=== PATIENT | female | born 1970 | race Two or more races ===

== ENCOUNTER 2021-06-20 15:00 | Outpatient (RCR) | payer OTHER, SELFPAY | END 2021-06-20 18:38 | disposition home or self-care (01) | LOC: HO.PTCHIC 15:00 | PROVIDERS: PCP Nurse Practitioner; Visit Provider Nurse Practitioner | DX: M54.30 Sciatica, unspecified side (principal) | CPT/HCPCS: 97110; 97140; 97161 ==

== ENCOUNTER 2023-10-23 07:27 | Day surgery (SDC) | payer OTHER, SELFPAY ==
[2023-10-21 11:17] VITALS: BMI 28.5
--- NOTE | 2023-10-22 09:48 | HO.ANESPROP2 ---
Documented by User: Lien Bernabe NP 10/22/23 09:49 HPI - Anesthesia Eval Consult details Narrative: 53yo F for Colonoscopy [facility] Past Medical History Medical History (Updated 10/23/23 @ 07:41 by Luz Sanchez RN) In vitro fertilization History of DVT (deep vein thrombosis) Seasonal allergies Social History Social History Patient Tobacco Use Status: Never used Tobacco Use of substances other than those prescribed or required for medical reasons: No Are you DNR?: No Advance Directives: No Advance Directives Information Provided: Yes Meds Allergies Allergy/AdvReac Type Severity Reaction Status Date / Time cephalexin Allergy Unknown rash Verified 01/08/17 00:00 [email or web address] Allergy Rash Verified 10/21/23 11:17 Home Medications Medication Instructions Recorded Confirmed Last Taken Type cetirizine 10 mg capsule (Zyrtec) 10 mg PO DAILY 10/21/23 10/21/23 Unknown History multivitamin 1 tab PO DAILY 10/21/23 10/21/23 Unknown History Exam Height,Weight and Vital Signs: Height 5 ft 2 in Weight 70.76 kg Assessment and Plan Assessment Anesthesia Assessment: Chart Reviewed Documented by User: Sahil Saini MD 10/23/23 09:11 [facility] Past Medical History Medical History (Updated 10/23/23 @ 07:41 by Luz Sanchez RN) In vitro fertilization History of DVT (deep vein thrombosis) Seasonal allergies Family History Family history of problems with anesthesia: No Surgical History History of Problems with Anesthesia: No Social History Social History Patient Tobacco Use Status: Never used Tobacco Use of substances other than those prescribed or required for medical reasons: No Are you DNR?: No Advance Directives: No Advance Directives Information Provided: Yes Meds Allergies Allergy/AdvReac Type Severity Reaction Status Date / Time cephalexin Allergy Unknown rash Verified 01/08/17 00:00 [email or web address] Allergy Rash Verified 10/21/23 11:17 Home Medications Medication Instructions Recorded Confirmed Last Taken Type cetirizine 10 mg capsule (Zyrtec) 10 mg PO DAILY 10/21/23 10/21/23 Unknown History multivitamin 1 tab PO DAILY 10/21/23 10/21/23 Unknown History Exam Airway Mallampati Class: I TM Dist: >3cm Neck ROM: Full Loose/Missing/Broken Teeth: No Heart: ok Lungs: ok Assessment and Plan Assessment Anesthesia Assessment: Anesthesia Plan Discussed Final Anesthetic Review Family History of Problems with Anesthesia: No History of Problems with Anesthesia: No NPO: Yes ASA Class: I Final Preanesthetic Review: No Changes in Pt Med Stat, Meds/Allgs Chart Reviewed, Consent Obtained/Reviewed and Anes Risks/Benef Reviewed Patient Risk: Low Procedure Risk: Low Anesthetic Plan Anesthetic Plan: MAC: and Agree w/ Assess. and Plan Disposition: Standard PACU
[2023-10-23 07:41] VITALS: BMI 28.3
[2023-10-23 07:57] VITALS: BP 110/71; PULSE 65; RESP 15; TEMP 36.4; O2SAT 100
[2023-10-23] MEDS: Lactated Ringers 1,000 ML 100 ML IVCONT (08:06)
--- NOTE | 2023-10-23 09:38 | PM.OP ---
Brief Operative Note Date of Service: 10/23/23 Pre-op diagnosis: Screening Post-op diagnosis: other (Polyps) Procedure: Colonoscopy to the cecum with cold snare polypectomy x 2 Surgeon: Yanick Mario MD Anesthesia: MAC Was an Dental Appliance [employer] used for this Procedure?: No Estimated blood loss (mL): 2.0 Pathology: other (A. Polyp at 60cm B. Polyp at 30cm) Condition: stable Disposition: PACU
[2023-10-23 09:40] VITALS: BP 103/45; PULSE 59; RESP 18; TEMP 36.1; O2SAT 100
[2023-10-23 09:55] VITALS: BP 116/54; PULSE 53; RESP 16; TEMP 36.9; O2SAT 100
--- NOTE | 2023-10-23 11:21 | OP_ITS ---
DATE OF SERVICE: 10/23/2023 SURGEON: Yanick Mario MD INDICATIONS: The patient presents for evaluation of colorectal cancer screening. Full consent has been obtained from her for this, including risks of bleeding and perforation. PREOPERATIVE DIAGNOSIS: Colorectal cancer screening. POSTOPERATIVE DIAGNOSIS: PROCEDURE PERFORMED: Colonoscopy to the cecum with cold snare polypectomy x 2. ESTIMATED BLOOD LOSS: COMPLICATIONS: ANESTHESIA: Monitored anesthesia care. ASSISTANTS: SPECIMENS: POSTOPERATIVE DIAGNOSES: Colorectal cancer screening, small colon polyps, occasional sigmoid diverticulosis, and internal hemorrhoids. DESCRIPTION OF PROCEDURE: The patient was placed in the left lateral decubitus position. The digital rectal exam revealed no abnormalities. The Olympus video pediatric colonoscope was entered into the rectum and advanced easily to the cecum. Once in the cecum, I did identify normal-appearing cecal pouch with appendiceal orifice and a normal-appearing ileocecal valve. The entire cecum and ileocecal valve were well visualized and appeared normal. There was transillumination of light deep in the right lower quadrant. The scope was slowly withdrawn, assessing all mucosal surfaces carefully. Preparation was excellent. At 30 cm and at 60 cm were flat, approximately 6 to 8 mm polyps, which were each removed by cold snare polypectomy and then recovered by suction. Both polypectomy sites appeared clean, without any sign of residual polyp or significant bleeding. I did not visualize any other polyps, colitis, nor angiodysplasia. There were occasional diverticula noted in the sigmoid colon. In the rectum, scope was retroflexed visualizing internal hemorrhoids, but no other pathology. The rectal mucosa appeared normal. The scope was straightened and withdrawn from the patient. She tolerated the procedure well and was returned to the recovery area in stable condition. IMPRESSION: 1. Small colon polyps. 2. Occasional diverticulosis. 3. Internal hemorrhoids. PLAN: The results of the pathology will be checked. If these are tubular adenomas, I would recommend a followup colonoscopy in 5 years. If they are only hyperplastic, I would recommend a followup colonoscopy in 10 years. She was advised not to use any aspirin and NSAIDs for 1 week. She will otherwise see me on a p.r.n. basis. MD SOCO Brito/LILIA / [id number] [place]
== END 2023-10-23 10:35 | disposition home or self-care (01) ==
PROVIDERS: PCP Nurse Practitioner; Visit Provider Internal Medicine
PROC: 0DJD8ZZ Inspection of Lower Intestinal Tract, Via Natural or Artificial Opening Endoscopic (ICD-10-PCS; CPT 45378; principal; 2023-10-23 08:30)
DX: Z12.11 Encounter for screening for malignant neoplasm of colon (principal); K57.30 Diverticulosis of large intestine without perforation or abscess without bleeding; K64.8 Other hemorrhoids
CPT/HCPCS: 45385; 88305; J2704